=== PATIENT | male | born 1960 | race Hispanic/Latino ===

== ENCOUNTER 2017-01-28 09:12 | Emergency (ER) | payer SELFPAY ==
[~2017-01-28] VITALS: Ht 165.1 cm; Wt 85.0 kg
[2017-01-28] MEDS ORDERED: BP MED (09:29)
[2017-01-28] MEDS ORDERED: [UNRECOGNIZED DRUG - OTHER] (09:30)
[2017-01-28] MEDS ORDERED: TOBRAMYCIN0.3 % OD (09:40)
[2017-01-28 10:05] VITALS: BP 177/95
== END 2017-01-28 10:05 | disposition home or self-care (01) | DRG 125 ==
LOC: ED 09:12
DX: S05.01XA Injury of conjunctiva and corneal abrasion without foreign body, right eye, initial encounter (principal); I10 Essential (primary) hypertension; E11.9 Type 2 diabetes mellitus without complications; W22.8XXA Striking against or struck by other objects, initial encounter